=== PATIENT | female | born 1945 | race Caucasian/White ===

== ENCOUNTER 2021-08-16 10:36 | Outpatient (CLI) | payer MEDICARE ==
[2021-08-16] MEDS ORDERED: Iopamidol 300 61% 100 ML VIAL FS ONE (12:16)
== END 2021-08-16 10:37 | disposition home or self-care (01) ==
LOC: CSHCT 10:36
PROVIDERS: ATTEND Family Medicine
DX: C56.1 Malignant neoplasm of right ovary (principal); C22.0 Liver cell carcinoma; R77.2 Abnormality of alphafetoprotein; R91.8 Other nonspecific abnormal finding of lung field
CPT/HCPCS: 71260; 82565

== ENCOUNTER 2021-08-22 09:47 | Outpatient (CLI) | payer MEDICARE, MEDICAID | END 2021-08-22 09:48 | disposition home or self-care (01) | LOC: CSHCT 09:47 | PROVIDERS: ATTEND Family Medicine | DX: C56.1 Malignant neoplasm of right ovary (principal); C22.0 Liver cell carcinoma; R77.2 Abnormality of alphafetoprotein; K43.9 Ventral hernia without obstruction or gangrene; R14.3 Flatulence | CPT/HCPCS: 74177; 82565 ==

== ENCOUNTER 2021-10-11 09:43 | Outpatient (CLI) | payer MEDICARE, MEDICAID ==
[2021-10-11] MEDS ORDERED: Magnevist 469MG/ML 20 ML VIAL ONE (14:41)
== END 2021-10-11 09:44 | disposition home or self-care (01) ==
LOC: CSHMRI 09:43
PROVIDERS: ATTEND Internal Medicine Gastroenterology
DX: R79.89 Other specified abnormal findings of blood chemistry (principal); C22.0 Liver cell carcinoma
CPT/HCPCS: 74183; A9579

== ENCOUNTER 2021-10-29 10:16 | Outpatient (CLI) | payer OTHER, MEDICAID | END 2021-10-29 10:17 | disposition home or self-care (01) | LOC: CSHMAMMO 10:16 | PROVIDERS: ATTEND Family Medicine | DX: Z12.31 Encounter for screening mammogram for malignant neoplasm of breast (principal); Z85.43 Personal history of malignant neoplasm of ovary; Z85.05 Personal history of malignant neoplasm of liver | CPT/HCPCS: 77063; 77067 ==